=== PATIENT | male | born 1945 | race Caucasian/White ===

== ENCOUNTER 2018-03-25 20:30 | Emergency (ER) | payer MEDICARE, OTHER ==
[~2018-03-25] VITALS: Ht 182.9 cm; Wt 100.0 kg
[2018-03-25] MEDS ORDERED: INSULIN REGULAR 100 UNITS/ML, 3ML VIAL ONE (20:51)
[2018-03-25] MEDS ORDERED: LIDOCAINE-MPF 1%, 5ML ONE (20:51)
[2018-03-25] MEDS ORDERED: SODIUM CHLORIDE 0.9% 1,000ML IVBOLUS ONE (21:00)
[2018-03-25] MEDS ORDERED: SODIUM CHLORIDE FLUSH 10ML SYR IVF ONE (21:00)
[2018-03-25] MEDS ORDERED: LIDOCAINE 1%, 10ML INFIL ONE (21:00)
[2018-03-25] MEDS ORDERED: INSULIN REGULAR 100 UNITS/ML, 3ML VIAL IVPush ONE (21:00)
[2018-03-25] MEDS ORDERED: BACITRACIN ZINC OINT 500U/GM, 0.9 GM ONE (21:33)
[2018-03-25 21:35] VITALS: BP 145/64
== END 2018-03-25 21:55 | disposition home or self-care (01) ==
LOC: ED 20:53
DX: S61.212A Laceration without foreign body of right middle finger without damage to nail, initial encounter (principal); S09.90XA Unspecified injury of head, initial encounter; E11.65 Type 2 diabetes mellitus with hyperglycemia; I10 Essential (primary) hypertension; E11.9 Type 2 diabetes mellitus without complications; W19.XXXA Unspecified fall, initial encounter; Y93.89 Activity, other specified; Y92.59 Other trade areas as the place of occurrence of the external cause; Y99.8 Other external cause status
CPT/HCPCS: 12041; 70450; 82962; 96361; 96374; 99284; J7030